=== PATIENT | female | born 1980 | race Caucasian/White ===

== ENCOUNTER 2020-11-21 11:26 | Emergency (ER) | payer OTHER ==
[2020-11-21 14:47] LABS: HEMOGLOBIN 12.7 gm/dl (12.3-15.3); RED BLOOD COUNT 3.85 M/UL (4.00-5.10); WHITE BLOOD COUNT 12.1 K/UL (4.5-11.0)
[2020-11-21 15:13] LABS: BUN/CREATININE RATIO 20 (0-10)
[2020-11-21] MEDS ORDERED: HYDROCODON-ACE1 EAC4 PO (18:15)
[2020-11-21] MEDS ORDERED: IBUPROFEN600 MG PO (18:15)
== END 2020-11-21 20:15 | disposition home or self-care (01) ==
LOC: ER1 11:26
PROVIDERS: Emergency Medicine
DX: S52.602A Unspecified fracture of lower end of left ulna, initial encounter for closed fracture (principal); S42.202A Unspecified fracture of upper end of left humerus, initial encounter for closed fracture; F17.200 Nicotine dependence, unspecified, uncomplicated; V49.40XA Driver injured in collision with unspecified motor vehicles in traffic accident, initial encounter; Y92.410 Unspecified street and highway as the place of occurrence of the external cause
CPT/HCPCS: 70450; 71045; 71260; 72125; 73060; 73090; 80053; 83690; 84703; 85025; 96374; 96375; 99284; G0480; J1885; J2405; Q9967

== ENCOUNTER → 2020-12-04 | Outpatient (CLI) | payer OTHER ==
[~2020-12-04] MED LIST: HYDROCODON-ACE1 EAC4 PO; IBUPROFEN600 MG PO
== END ==
LOC: KOH-I 09:56
DX: S42.202A Unspecified fracture of upper end of left humerus, initial encounter for closed fracture (principal)
CPT/HCPCS: 73200